=== PATIENT | female | born 1990 | race Hispanic/Latino ===

== ENCOUNTER 2023-06-11 19:17 | Emergency (ER) | payer OTHER ==
[~2023-06-11] VITALS: Ht 154.9 cm; Wt 70.8 kg
[2023-06-11 19:18] VITALS: BP 132/79; PULSE 126
[2023-06-11 19:56] LABS: RAPID GROUP A STREP positive (NEGATIVE); SARS-CoV-2, RNA, NAAT NEGATIVE SARS CoV-2 (NEGATIVE)
[2023-06-11] MEDS ORDERED: IBUPROFEN 600 MG TABLET PO ONE (20:00)
[2023-06-11] MEDS ORDERED: ACETAMINOPHEN 500 MG TABLET PO ONE (20:00)
[2023-06-11 20:06] LABS: INFLUENZA TYPE A Negative For Type A (NEGATIVE); INFLUENZA TYPE B Negative For Type B (NEGATIVE)
[2023-06-11] MEDS ORDERED: AMOX500C2 PO (20:25)
[2023-06-11] MEDS ORDERED: CEFTRIAXONE 1G VIAL IM ONE (20:30)
[2023-06-11 20:35] VITALS: TEMP 100.6
[2023-06-11 20:37] VITALS: RESP 18; O2SAT 100
== END 2023-06-11 20:40 | disposition home or self-care (01) ==
LOC: EDH 19:17
DX: J02.0 Streptococcal pharyngitis (principal); Z20.822 Contact with and (suspected) exposure to COVID-19
CPT/HCPCS: 99283; 87635; 87880; 87804 ×2; 96372; C9803; J0696